=== PATIENT | female | born 1975 | race Caucasian/White ===

== ENCOUNTER 2019-11-26 20:32 | Emergency (ER) | payer BC ==
[~2019-11-26] VITALS: Ht 162.6 cm; Wt 56.8 kg
[2019-11-26] MEDS ORDERED: LEXA1TAB PO (20:40)
[2019-11-26] MEDS ORDERED: BUSP5TA PO (20:40)
[2019-11-26] MEDS ORDERED: NORT10CA2 PO (20:40)
[2019-11-26] MEDS ORDERED: ZOFR4TAB16 PO (20:40)
[2019-11-26] MEDS ORDERED: NIFE1TAB52 PO (20:40)
[2019-11-26] MEDS ORDERED: MOBI4TAB PO (20:40)
[2019-11-26] MEDS ORDERED: HYDR200T3 PO (20:40)
[2019-11-26 21:57] LABS: BASO # 0.1 10^3/uL (0.0-0.2); BASO % 0.8 % (0.0-1.0); EOS # 0.4 10^3/uL (0.0-0.5); EOS % 5.2 % (0.0-3.0); HEMATOCRIT 38.6 % (36.0-47.0); HEMOGLOBIN 13.3 g/dl (12.0-15.5); LYMPH # 2.6 10^3/uL (1.5-5.0); LYMPH % 36.1 % (24.0-44.0); MEAN CORPUSCULAR HEMOGLOBIN 31.2 pg (27.0-33.0); MEAN CORPUSCULAR HGB CONC 34.5 g/dl (32.0-36.5); MEAN CORPUSCULAR VOLUME 90.6 fl (80.0-96.0); MONO # 0.7 10^3/uL (0.0-0.8); MONO % 9.3 % (0.0-5.0); NEUTROPHILS # 3.5 10^3/uL (1.5-8.5); NEUTROPHILS % 48.5 % (36.0-66.0); PLATELET COUNT, AUTOMATED 314 10^3/uL (150-450); RED BLOOD COUNT 4.26 10^6/uL (4.00-5.40); WHITE BLOOD COUNT 7.2 10^3/uL (4.0-10.0)
[2019-11-26] MEDS ORDERED: NS 1,000 ML IV ONE (22:00)
[2019-11-26] MEDS ORDERED: MORPHINE 4 MG/ML 1ML VIAL/SYRINGE (J2270) IV ONE (22:00)
[2019-11-26] MEDS ORDERED: ONDANSETRON 4MG/2ML VIAL As Ordered ONE (22:03)
[2019-11-26] MEDS ORDERED: ONDANSETRON 4MG/2ML VIAL IV ONE (22:15)
[2019-11-26 22:18] LABS: ALBUMIN 4.2 GM/DL (3.2-5.2); ALT/SGPT 22 U/L (12-78); BILIRUBIN,DIRECT < 0.1 MG/DL (0.0-0.2); BILIRUBIN,TOTAL 0.2 MG/DL (0.2-1.0); BLOOD UREA NITROGEN 14 MG/DL (7-18); CALCIUM LEVEL 8.7 MG/DL (8.5-10.1); CARBON DIOXIDE LEVEL 28 MEQ/L (21-32); CHLORIDE LEVEL 107 MEQ/L (98-107); CREATININE FOR GFR 0.78 MG/DL (0.55-1.30); GLOMERULAR FILTRATION RATE > 60.0 (>58); GLUCOSE, FASTING 86 MG/DL (70-100); LIPASE 109 U/L (73-393); POTASSIUM SERUM 4.3 MEQ/L (3.5-5.1); SODIUM LEVEL 138 MEQ/L (136-145); TOTAL PROTEIN 7.4 GM/DL (6.4-8.2)
[2019-11-26 22:26] LABS: HCG, SERUM QUALITATIVE NEGATIVE (NEGATIVE)
[2019-11-26] MEDS ORDERED: KETOROLAC 30 MG/ML 1ML VIAL IV ONE (22:45)
[2019-11-26] MEDS ORDERED: KETOROLAC 30 MG/ML 1ML VIAL As Ordered ONE (22:48)
[2019-11-26] MEDS ORDERED: ISOVUE-370 76% 100ML VIAL As Ordered ONE (22:56)
--- NOTE | 2019-11-26 23:38 | REPVR ---
PROCEDURE INFORMATION: Exam: CT Abdomen And Pelvis With Contrast Exam date and time: 11/26/2019 10:41 PM Age: 43 years old Clinical indication: Abdominal pain; Localized; Right lower quadrant (rlq); Additional info: Rlq pain TECHNIQUE: Imaging protocol: Computed tomography of the abdomen and pelvis with intravenous contrast. Axial, coronal and sagittal reformatted images were created and reviewed. Radiation optimization: All CT scans at this facility use at least one of these dose optimization techniques: automated exposure control; mA and/or kV adjustment per patient size (includes targeted exams where dose is matched to clinical indication); or iterative reconstruction. Contrast material: ISO; Contrast volume: 100 ml; Contrast route: INTRAVENOUS (IV); COMPARISON: No relevant prior studies available. FINDINGS: Liver: Unremarkable. Gallbladder and bile ducts: No radiodense gallstones. No biliary ductal dilatation. Pancreas: Unremarkable. Spleen: Unremarkable. Adrenals: Unremarkable. Kidneys and ureters: No mass. No radiodense calculi. No hydronephrosis. Stomach and bowel: Large amount of retained stool in the colon. No obstruction. No bowel wall thickening. No pneumatosis. Appendix: Normal. Intraperitoneal space: Trace nonspecific free pelvic fluid, likely physiologic. No organized fluid collection. No free air. Vasculature: Unremarkable. No aneurysm. Lymph nodes: No pathologically enlarged lymph nodes. Bladder: Unremarkable. Reproductive: Probable involuting left ovarian corpus luteal cyst. Bones/joints: No acute osseous abnormality. Soft tissues: Unremarkable. IMPRESSION: 1. Large amount of retained stool in the colon. 2. Probable involuting left ovarian corpus luteal cyst. 3. Additional findings, as above. Electronically signed by: Titus Jiang On 11/26/2019 23:39:02 PM
[2019-11-27] MEDS ORDERED: LACTULOSE 20 GM/30 ML SYRUP UD PO ONE
[2019-11-27 00:36] VITALS: BP 110/64
== END 2019-11-27 00:39 | disposition home or self-care (01) ==
LOC: M ED 20:32
DX: K59.00 Constipation, unspecified (principal); F33.9 Major depressive disorder, recurrent, unspecified; Z87.891 Personal history of nicotine dependence; Z79.899 Other long term (current) drug therapy
CPT/HCPCS: 74177; 80048; 80076; 81001; 83690; 84703; 85025; 96361; 96374; 96375; 99284; J1885; J2270; J2405; Q9967

== ENCOUNTER 2019-12-26 00:21 | Emergency (ER) | payer BC ==
[~2019-12-26] VITALS: Ht 162.6 cm; Wt 56.5 kg
[~2019-12-26 00:21] MED LIST: BUSP5TA PO; HYDR200T3 PO; LEXA1TAB PO; MOBI4TAB PO; NIFE1TAB52 PO; NORT10CA2 PO; ZOFR4TAB16 PO
[2019-12-26] MEDS ORDERED: CRAN400C PO (00:31)
[2019-12-26] MEDS ORDERED: AZO-95TA3 PO (00:31)
[2019-12-26] MEDS ORDERED: PHENAZOPYRIDINE 100 MG TAB PO ONE (01:45)
[2019-12-26] MEDS ORDERED: NITROFURANTOIN (MACROBID) 100 MG CAP PO ONE (01:45)
[2019-12-26 01:51] VITALS: BP 118/68
== END 2019-12-26 01:53 | disposition home or self-care (01) ==
LOC: M ED 00:21
DX: N30.01 Acute cystitis with hematuria (principal); Z79.899 Other long term (current) drug therapy